=== PATIENT | female | born 1950 | race Caucasian/White ===

== ENCOUNTER 2022-11-13 06:32 | Observation (INO) ==
--- NOTE | 2022-10-22 12:32 | PAT Medication Instructions ---
Medication Instructions Date of Service October 22, 2022 Home Medications duloxetine 20 mg capsule,delayed release 50 mg PO QAM ibuprofen 200 mg tablet 200 mg PO HS lisinopril 10 mg tablet 10 mg PO QAM melatonin 10 mg tablet 10 mg PO HS PRN pantoprazole 40 mg tablet,delayed release 40 mg PO QAM simvastatin 10 mg tablet 10 mg PO HS ASK your surgeon for instructions ibuprofen 200 mg tablet 200 mg PO HS DO NOT take the morning of surgery lisinopril 10 mg tablet 10 mg PO QAM Take morning of surgery With a small sip of water, OTHERWISE NOTHING TO EAT OR DRINK AFTER MIDNIGHT: duloxetine 20 mg capsule,delayed release 50 mg PO QAM pantoprazole 40 mg tablet,delayed release 40 mg PO QAM Take evening before surgery melatonin 10 mg tablet 10 mg PO HS PRN(if needed) simvastatin 10 mg tablet 10 mg PO HS Other Notes If you have any questions please call us at [phone] or [phone] or [phone] or [phone]
--- NOTE | 2022-10-26 08:54 | History & Physical Report ---
Date of Service October 26, 2022 date of surgery: 11/13/22 Procedure: Right Total Knee Arthroplasty Surgeon: Aaron De Leon Assessment & Plan (1) Arthritis of right knee: Plan: Risk and benefits of the procedure were discussed in detail, she would like to proceed with right total knee arthroplasty. We will plan on overnight stay at the hospital with discharge home with home health physical therapy. Will place on aspirin 81 mg twice a day for 1 month postop DVT prophylaxis, she otherwise has no other questions or concerns The risks and benefits have been discussed including, but not limited to, risk of infection, nerve injury, stiffness, loss of motion, failure to improve, etc. Reasonable outcomes and options of treatment were discussed. An explanation of appropriate alternatives to the procedure that may be advantageous were discussed and their risks and benefits, as well as the risks and benefits of not proceeding with treatment. I offered to answer any additional inquiries concerning the treatment involved. All the patient's questions were answered. The patient is agreeable, understanding of the treatment plan and alternatives, and wishes to proceed with the treatment plan. History of Present Illness Chief Complaint: Right knee pain Primary Care Provider: NO PCP Elle is a 72-year-old female who presents for preop evaluation prior to her right total knee replacement scheduled for November 13. She has a longstanding history of right knee pain denies any previous surgeries. She has undergone previous corticosteroid injection as well as viscosupplementation without relief. She tried oral anti-inflammatories and Tylenol, rates her current pain as a 7 out of 10. At this point time is failed conservative measures and would like to proceed with a right total knee arthroplasty Allergies Allergy/AdvReac Type Severity Reaction Status Date / Time No Known Allergies Allergy Verified 10/22/22 11:40 Home Medications Medication Instructions Recorded Confirmed Type duloxetine 20 mg capsule,delayed 50 mg PO QAM 10/22/22 10/22/22 History release ibuprofen 200 mg tablet 200 mg PO HS 10/22/22 10/22/22 History lisinopril 10 mg tablet 10 mg PO QAM 10/22/22 10/22/22 History melatonin 10 mg tablet 10 mg PO HS PRN Sleep 10/22/22 10/22/22 History pantoprazole 40 mg tablet,delayed 40 mg PO QAM 10/22/22 10/22/22 History release simvastatin 10 mg tablet 10 mg PO HS 10/22/22 10/22/22 History Past Med/Surg History Medical History Depression Fibromyalgia GERD (gastroesophageal reflux disease) History of COVID-19 08/2022 (home test)- fatigue, aches; resolved HTN (hypertension) Hyperlipidemia Sleep apnea CPAP (compliant) Varicose veins of both lower extremities Surgical History Hx of bilateral cataract extraction Hx of section Hx of cholecystectomy Hx of colonoscopy Family History Other No family history of adverse response to anesthesia Social History Smoking Status: Former smoker Second Hand Exposure: No; Do You Dip or Chew Tobacco: No; Hx Alcohol Use: No Hx Substance Use: No Preferred Language: Brazilian Communication Ability: Effective Erosion Control Coordinator Required: No Beliefs That Will Affect Care: None Current Living Situation: Alone Feels Safe at Home: Yes Assistive Devices: CPAP and Glasses Review of Systems Review of Systems: All systems reviewed & are unremarkable except as noted in HPI & below Constitutional: no fever, no chills and no sweats Respiratory: no cough and no dyspnea Cardiovascular: no chest pain, no dyspnea and no orthopnea Gastrointestinal: no abdominal pain, no nausea and no vomiting Musculoskeletal: as per Subjective / HPI Physical Exam Physical Exam: HT: 5ft 1in WT: 114.2kg Constitutional: WD/WN, vitals as above no acute distress Respiratory: normal respiratory effort, lungs clear to auscultation no respiratory distress, no labored breathing and does not use accessory muscles Cardiovascular: RRR, no murmur, no edema Gastrointestinal (Abdomen): normal bowel sounds, soft, nontender, no hepatosplenomegaly Musculoskeletal: Knee: + knee abnormal to inspection (RIGHT KNEE: ), + effusion (+1 effusion), + limited ROM of knee (ROM 0/3/110), + knee ROM with crepitation, + joint line tenderness (medial joint line) and + Lamar's sign positive; no deformity, no skin erythema, no ecchymosis, no valgus laxity, no varus laxity, anterior drawer test negative, Ivonne's sign negative and pivot shift test negative Results & Data Results & Data Diagnostic Findings Right Knee X-ray: Right knee series showing advanced degenerative changes to the right knee, n arrowing of the medial compartment and patello-femoral joint with patellar spurring noted, findings showing joint space narrowing of the medial compartment and patello-femoral joint, osteophyte formation and subchondral sclerosis noted. overall varus alignment. no acute bony pathology noted.
--- NOTE | 2022-10-26 12:35 | Anesthesiology Consultation ---
Date of Service October 26, 2022 Assessment & Plan (1) Encounter for pre-operative examination: - COVID screening: Per assessment on 10/26: No known COVID-19 positive contacts or current COVID-19 related symptoms. Travel screen negative. Patient vaccinated. - Outpatient joint assessment: Pt currently scheduled for inpatient pathway. If surgeon requests review for outpatient joint pathway, patient is not recommended candidate for outpatient joint program from anesthesia standpoint. Chart Review Chart Review: Acceptable Risk for Surgery and Patient seen in Pre Admission Testing Teaching & Discussion Pre-Anesthesia Teaching/Discussion Notes: Instructed NPO after midnight before surgery,except medications with 15 cc of water. Medication instructions provided according to the PAT guidelines. History Surgery Operation Date: 11/13/22 08:25 Proposed Procedures p Right Total Knee Arthroplasty - Aaron De Leon DO Height/Weight Height: 5 ft 1 in Weight: 114.2 kg Allergies Allergy/AdvReac Type Severity Reaction Status Date / Time No Known Allergies Allergy Verified 10/22/22 11:40 Medications Home Medications Medication Instructions Recorded Confirmed Last Taken duloxetine 20 mg capsule,delayed 50 mg PO QAM 10/22/22 10/22/22 Unknown release ibuprofen 200 mg tablet 200 mg PO HS 10/22/22 10/22/22 Unknown lisinopril 10 mg tablet 10 mg PO QAM 10/22/22 10/22/22 Unknown melatonin 10 mg tablet 10 mg PO HS PRN Sleep 10/22/22 10/22/22 Unknown pantoprazole 40 mg tablet,delayed 40 mg PO QAM 10/22/22 10/22/22 Unknown release simvastatin 10 mg tablet 10 mg PO HS 10/22/22 10/22/22 Unknown Past Medical History Medical History Depression Fibromyalgia GERD (gastroesophageal reflux disease) History of COVID-19 08/2022 (home test)- fatigue, aches; resolved HTN (hypertension) Hyperlipidemia Sleep apnea CPAP (compliant) Varicose veins of both lower extremities Exercise / Class Metabolic Activity III < 4 Walking/Shop/Light housework Past Family History Family History Other No family history of adverse response to anesthesia Past Surgical History Surgical History Hx of bilateral cataract extraction Hx of section Hx of cholecystectomy Hx of colonoscopy Past Anesthesia History No Family Hx of Anesthesia Complications and Other (Urinary retention after neuraxial anesthesia for c/s + delivery) History of PONV No Hx of PONV and No Hx of Motion Sickness Social History Smoking Status: Former smoker Do You Dip or Chew Tobacco: No Smoking End Date: Quit 40 years ago Hx Alcohol Use: No Hx Substance Use: No substance use type: does not use Review of Systems Patient denies chest pain, shortness of breath, fever, chills, cough, wheezing, palpitations. Physical Exam Vital Signs VITALS BP 141/81 P 74 TEMP 98.2 SP02 96%RA RESP 16 PHYSICAL Full cervical extension range of motion. Full TMJ range of motion. TMD 3 finger breaths Mallampati Score 4 (small oral opening) Dentition: several missing teeth (sides/molars) Lungs: clear throughout to auscultation Cardiac: regular rate and rhythm, no murmurs noted Spine: normal Carotid arteries: negative bruit Extremities: non-pitting LE edema Thick neck Lab Results Anesthesia Preop Results Results Anesthesia Widget: WBC 6.88 K/ul (4.8-10.8) 10/26/22 Hgb 14.1 g/dl (12.0-16.0) 10/26/22 Hct 40.9 % (37.0-47.0) 10/26/22 Plt 279 K/uL (130-400) 10/26/22 Na 140 mmol/L (136-145) 10/26/22 K 3.8 mmol/L (3.5-5.1) 10/26/22 Cl 108 mmol/L (98-107) H 10/26/22 CO2 25 mmol/L (21-32) 10/26/22 BUN 19 mg/dl (6-23) 10/26/22 Creat 0.57 mg/dl (0.6-1.2) L 10/26/22 Glucose Level 131 mg/dl (70-99(Fasting)) H 10/26/22 PT 10.6 Seconds (9.0-12.0) 10/26/22 PTT 26.8 Seconds (21.0-31.0) 10/26/22 INR 1.0 (0.9-1.1) 10/26/22 HA1c 5.6 % (4.5-5.6) 10/26/22 Urine Color Yellow 10/26/22 Urine Appearance Cloudy (Clear) A 10/26/22 Urine pH 5.0 (4.5-7.5) 10/26/22 Urine Specific [place] 1.023 (1.000-1.030) 10/26/22 Urine Protein Negative (Negative) 10/26/22 Urine Glucose (UA) Negative (Negative) 10/26/22 Urine Ketones Negative (Negative) 10/26/22 Urine Blood Negative (Negative) 10/26/22 Urine Nitrite Negative (Negative) 10/26/22 Urine Bilirubin Negative (Negative) 10/26/22 Urine Urobilinogen Negative (Negative) 10/26/22 Urine Leukocyte Esterase 2+ (Negative) H 10/26/22 Urine WBC (Auto) 10-30 /hpf (0-5) H 10/26/22 Urine RBC (Auto) 0-4 /hpf (0-4) 10/26/22 Urine Hyaline Casts (Auto) 1-5 /lpf (0-5) 10/26/22 Urine Epithelial Cells (Auto) >30 /lpf (0-5) H 10/26/22 Urine Bacteria (Auto) Negative (Negative) 10/26/22 Blood Type B Positive 10/26/22 Antibody Screen NEGATIVE 10/26/22 Testing Electrocardiogram Date: 10/26/22 NSR at 74bpm. Low voltage QRS. *Poor data quality. Chest X-Ray Date: 10/26/22 FINDINGS: PA and lateral chest radiographs are obtained. No prior studies are available for comparison at the time of dictation. The cardiomediastinal silhouette is unremarkable noting atherosclerotic calcification of the thoracic aorta. There is bibasilar atelectasis. The lungs and pleural spaces are otherwise clear. There is no pneumothorax. The skeletal structures are osteopenic. The bony thorax appears intact. Degenerative change is noted in the spine. Cholecystectomy clips are noted in the upper quadrant. IMPRESSION: No active disease in the chest. COVID-19 Risk Screen Screening Information COVID-19 Screen Date: 10/26/22 Exposure 21 Days Family/Household +COVID Last 21 Days: No Exposure 10 Days Any COVID Exposure Last 10 Days: No Symptoms Last 10 Days Experienced COVID Sx Last 10 Days: No + COVID 0-90 Days COVID + in Last 0-90 Days: No
[~2022-11-13 06:32] MED LIST: ACETAMINOPHEN 500 MG TAB PO SCH; CeleBREX 200 MG CAP PO SCH; FAMOTIDINE 20 MG TAB PO SCH; GABAPENTIN 300 MG CAP PO SCH; LR 60ML/HR IV SCH; METOCLOPRAMIDE HCL 10 MG TABLET PO SCH; ROPIVACAINE 0.5% HCL/PF 150 MG, BUPIVACAINE 0.75% MPF 20 ML, EPINEPHrine 30MG/30ML (OR ... INSTIL SCH; TRANEXAMIC ACID 1,000 MG **IV Intra-op IV SCH; TRANEXAMIC ACID 1,000 MG **IV Pre-op IV SCH; ceFAZolin 2000MG 2,000 MG/15 ML SYR IV SCH; dexAMETHasone 4 MG TAB PO SCH
[2022-11-13] MEDS ORDERED: BUPIVACAINE 0.25% PF 30 ML VIAL ONE (06:35)
[2022-11-13] MEDS ORDERED: BUPIVACAINE 0.5 % 5 MG/1 ML PF 10ML VIAL ONE (06:35)
[2022-11-13] MEDS ORDERED: ePHEDrine sulfate 50 MG/ML AMP IV PRN (07:44)
[2022-11-13] MEDS ORDERED: ATROPINE SULFATE 0.1 MG/ML 10ML SYR IV PRN (07:44)
[2022-11-13] MEDS ORDERED: ONDANSETRON INJ 2 MG/ML 2 ML VIAL IV PRN ×2 (07:44→12:56)
[2022-11-13] MEDS ORDERED: fentaNYL citrate PF 100 MCG/2 ML VIAL IV PRN (07:44)
[2022-11-13] MEDS: LR 500ML BOLUS, THEN 15ML/HR IV SCH ×2 (08:04→08:09)
[2022-11-13] MEDS ORDERED: ONDANSETRON INJ 2 MG/ML 2 ML VIAL ONE (08:33)
[2022-11-13] MEDS ORDERED: MIDAZOLAM HCL 1 MG/ML 2ML VIAL ONE (08:33)
[2022-11-13] MEDS ORDERED: LIDOCAINE 2% 2 ML VIAL/AMP(20MG/ML) INFIL ONE (08:33)
[2022-11-13] MEDS ORDERED: KETAMINE 50 MG/5 ML SYRINGE ONE (08:33)
[2022-11-13] MEDS ORDERED: GLYCOPYRROLATE 0.2 MG/ML VIAL ONE (08:33)
[2022-11-13] MEDS ORDERED: PROPOFOL IV EMULSION 10 MG/ML 20 ML VIAL IV ONE ×2 (08:33→11:07)
--- NOTE | 2022-11-13 08:48 | History & Physical Bridge Note ---
Date of Service November 13, 2022 History & Physical Bridge Note I have examined the patient, reviewed the History & Physical and in the interval since the performance of the History & Physical I have noted the following changes of clinical significance: no changes noted
[2022-11-13] MEDS ORDERED: ORTHO JOINT ANESTHETIC ONE (09:55)
[2022-11-13] MEDS ORDERED: PHENYLEPHRINE HCL 10 MG/ML VIAL ONE (10:23)
--- NOTE | 2022-11-13 11:18 | Operative Report ---
Post Operative Report Pre & Post Diagnosis Operation Date: 11/13/22 09:10 Pre-Op Diagnosis: Right Knee OsteoarthritisMorbid obesity Post-Op Diagnosis: Right Knee OsteoarthritisMorbid obesity I identified the patient and participated in the time-out.: Yes Procedure Operation Date: 11/13/22 09:10 Actual Procedures p Right Total Knee Arthroplasty(Right)Utilizing [employer] 2 patient match total knee arthroplasty size femur 5 tibia 3 polythirteen constrained patella 29 oval - Aaron De Leon DO Surgeon Aaron De Leon DO Merchandising Team Lead Yvan VENTURA Estimated Blood Loss 10 Findings Consistent with Post-Op Diagnosis Patient presents with severe end-stage tricompartmental degenerative joint disease no response to conservative management patient has eburnated [id number] marginal osteophytes subchondral sclerosis with moderate to large effusion Specimens Bone and cartilage Drains Medium bore Hemovac Anesthesia Type MAC Spinal Regional Complications none Disposition Accompanied Patient To Recovery: No Disposition: Recovery Room Indications Patient presents with severe end-stage DJD right knee no response to conser vative management patient failed after corticosteroid injection viscosupplementation relative rest activity modification above intraoperative findings were noted Description of Procedure After proper prepping and draping of the Right lower extremity anterior midline incision was made over the region of the extensor extensor mechanism after meticulous hemostasis was obtained and maintained in subcutaneous tissues a medial parapatellar incision was made The patella was subluxed lateralward the medial lateral gutter were cleaned from any hypertrophic synovitis and scar tissue of the distal femoral block was placed and the distal femoral osteotomy cut was made subsequently the chamfers anterior and posterior osteotomy cuts were made utilizing the 4-in-1 block the tibia was subsequently subluxed anteriorward medial and ateral meniscal remnants were excised in their entirety remnants of the anterior and posterior cruciate ligaments were excised in their entirety excellent exposure of the proximal tibia was obtained the tibial osteotomy guide was placed on the proximal tibial osteotomy cut was made once again the knee was irrigated with copious amounts of sterile saline solution the patella was subsequently everted lateralward thickened scar tissue around the patella was removed the patella was subsequently cut utilizing a freehand estuardo hnique and was drilled prepared for final preparation and placement of patella socially flexion-extension gaps were checked and the equal and symmetric trials were placed to the appropriate femoral and tibial trials with poly-spacer being placed for equal flexion and extension gaps and full range of motion including extension to 0 and flexion to 140 the trial components after having been taken to recovery range of motion was subsequently removed meticulous hemostasis was obtained and maintained subsequently a knee block injection of joint cocktail including ropivacaine 0.5% 150 mg. Bupivacaine 0.5% epinephrine 1-200,030 mL's toradol 30 mg dexamethasone 4 mg ketamine 10 mg clonidine 100 micrograms normal saline solution 30 mg was infiltrated into the soft tissues of the posterior knee medial lateral gutters and periosteal synovium special attention was paid to protect neurovascular structures at all times subsequently trial components having been removed the knee was irrigated with sterile saline solution. debris was removed the proximal tibia was subsequently prepared and was made ready for the placement of the tibial component tibial component was also cemented and tamped into position the femoral component was subsequently placed and cemented in the position the patellar component was subsequently cemented in position because hemostasis once again obtained and maintained wound having been thoroughly irrigated with debridement and debridement lavage was performed as well as a medial parapatellar incision closed with #1 Vicryl in interrupted fashion subcutaneous was closed with #2 Vicryl skin was closed with skin clips. PA-C was necessary for prepping and drapping as well as wound closure of deep fascia Sub cutaneous tissue and skin and was necessary for the case. A sterile compressive dressing was placed patient was taken to recovery in stable condition of report dictated by Moises I attest to the content of the Intraoperative Record and any orders documented therein. Any exceptions are noted below.Due to the complex nature of the procedure, the entire surgery was performed with the operational assistance of Yvan Walton [facility]. The leasing assistant, under direct supervision, was involved in the actual performance of all aspects of the surgical procedure including hemostasis, tissue retraction and incision, instrument management, patient positioning, and wound closure.The patient is [113.7 kgs with a BMI of 47.4. The patient's habitus did contribute to significant technical difficulty requiring extra time. Additional help was necessary in order to position the patient safely. The use of specialized (longer, deeper) retractors and/or instruments were needed. Due to this, the procedure took 20 minutes longer than the standard total knee arthroplasty." I attest to the content of the Intraoperative Record and any orders documented therein. Any exceptions are noted below.
--- NOTE | 2022-11-13 12:07 | XRay Report ---
XR knee RT 1 or 2V routine CLINICAL HISTORY: Surgical Post Op TECHNIQUE: 2 views of the right knee were obtained. Comparison: None available at the time of this dictation. FINDINGS: Patient is status post total knee arthroplasty with expected postsurgical changes including soft tiss ue swelling and subcutaneous emphysema. No periarticular lucency or hardware fracture is seen. IMPRESSION: Expected postoperative appearance status post placement of total knee arthroplasty. ACT 112: Negative or not required by law. Electronically signed by: Lenny Lam M.D. 11/13/2022 12:06 PM
[2022-11-13] MEDS ORDERED: bisacodyL 10 MG SUPP PR PRN (12:56)
[2022-11-13] MEDS ORDERED: HYDROmorphone INJ 1 MG/ML SYRINGE IV PRN (12:56)
[2022-11-13] MEDS ORDERED: METOCLOPRAMIDE HCL INJ 5 MG/ML 2 ML VIAL IV PRN (12:56)
[2022-11-13] MEDS ORDERED: diphenhydrAMINE Capsule 25 MG CAP PO PRN (12:56)
[2022-11-13] MEDS ORDERED: NALOXONE HCL 0.4 MG/1 ML VIAL/CARP IV PRN (12:56)
[2022-11-13] MEDS ORDERED: MAGNESIUM HYDROXIDE SUSP 30 ML UDC PO PRN (12:56)
[2022-11-13] MEDS ORDERED: SODIUM CHLORIDE 0.9% 1000ML 1,000 ML IV SCH (12:56)
[2022-11-13] MEDS ORDERED: MELATONIN 3 MG TAB PO PRN (13:03)
[2022-11-13] MEDS: KETOROLAC TROMETHAMINE 15 MG/ML VIAL IV SCH ×2 (13:32→18:30)
[2022-11-13] MEDS: oxyCODONE HCL IR 5 MG TAB (IMMEDIATE RELEASE) PO PRN (13:55)
[2022-11-13] MEDS: ACETAMINOPHEN 500 MG TAB PO SCH ×2 (14:53→21:59)
--- NOTE | 2022-11-13 14:57 | Anesthesiology Progress Note ---
Date of Service November 13, 2022 Anesthesia Post Procedure Vital Signs Vital Signs: Temp Pulse Pulse Resp BP Pulse Ox O2 Del Method 11/13/22 14:51 36.4 C L 74 16 114/64 95 Nasal Cannula 11/13/22 13:53 36.4 C L 77 16 128/62 94 Nasal Cannula 11/13/22 13:17 36.4 C L 74 16 126/66 95 Nasal Cannula 11/13/22 12:45 36.7 C 79 16 132/68 92 Nasal Cannula 11/13/22 12:45 Nasal Cannula 11/13/22 12:30 78 14 137/67 93 Room Air 11/13/22 12:15 82 12 140/63 94 Room Air 11/13/22 12:00 36.6 C 82 19 125/65 94 Room Air 11/13/22 11:50 81 14 127/63 99 Oxymask 11/13/22 11:44 36.7 C 77 12 123/53 L 95 Oxymask 11/13/22 07:25 36.8 C 76 20 152/82 H 95 Room Air O2 Flow Rate 11/13/22 14:51 2 11/13/22 13:53 2 11/13/22 13:17 2 11/13/22 12:45 2 11/13/22 12:45 2 11/13/22 12:30 11/13/22 12:15 11/13/22 12:00 11/13/22 11:50 9 11/13/22 11:44 9 11/13/22 07:25 Transfer of Care Handoff Completed per policy Notes Mental Status: alert / awake / arousable and participated in evaluation Patient Amnestic to Procedure: Yes Nausea / Vomiting: adequately controlled Pain: adequately controlled Airway Patency, RR, SpO2: stable & adequate BP & HR: stable & adequate Hydration State: stable & adequate Neuraxial Anesthesia: was administered and sensory block is resolving Anesthetic Complications: no major complications apparent and Pt Satisfied with anesthetic care
[2022-11-13] MEDS: ceFAZolin 2000MG 2,000 MG/15 ML SYR IV SCH (18:29)
[2022-11-13] MEDS: ASPIRIN 81 MG ECTAB PO SCH (20:44)
[2022-11-13] MEDS: DOCUSATE SODIUM 100 MG CAP PO SCH (20:45)
[2022-11-13] MEDS ORDERED: SIMVASTATIN 10 MG TAB PO SCH (21:00)
[2022-11-13] MEDS ORDERED: SENNA 8.6 MG TAB PO SCH (21:00)
[2022-11-14] MEDS: KETOROLAC TROMETHAMINE 15 MG/ML VIAL IV SCH ×2 (01:10→07:10)
[2022-11-14] MEDS: ceFAZolin 2000MG 2,000 MG/15 ML SYR IV SCH (02:32)
[2022-11-14] MEDS: ACETAMINOPHEN 500 MG TAB PO SCH (06:21)
[2022-11-14 06:53] LABS: Hematocrit (blood only) 36.5 % (37.0-47.0); Hemoglobin 12.6 g/dl (12.0-16.0); Mean Corpuscular Hemoglobin 32.6 pg (25.0-34.0); Mean Corpuscular Hgb Conc 34.5 g/dL (32.0-36.0); Mean Corpuscular Volume 94.3 fL (80.0-100.0); Mean Platelet Volume 10.3 fL (9.4-12.4); Platelet Count 250 K/uL (130-400); RDW Standard Deviation 41.1 fL (36.4-46.3); Red Blood Count 3.87 M/uL (4.20-5.40)
[2022-11-14] MEDS: DOCUSATE SODIUM 100 MG CAP PO SCH (07:11)
[2022-11-14] MEDS: ASPIRIN 81 MG ECTAB PO SCH (07:11)
[2022-11-14 07:37] LABS: Anion Gap 6 (3-11); BUN Creatinine Ratio 31.8 (10-20); Blood Urea Nitrogen 21 mg/dl (6-23); Calcium 8.6 mg/dl (8.6-10.3); Carbon Dioxide 25 mmol/L (21-32); Chloride 107 mmol/L (98-107); Creatinine Clr Calc Pharmacy 88.9 ml/min; Est GFR (African American) 101.6 ml/min; Est GFR (Non-African American) 87.6 ml/min; Glucose 118 mg/dl (70-99(Fasting)); Sodium 138 mmol/L (136-145)
--- NOTE | 2022-11-14 08:35 | Orthopedic Progress Note ---
Date of Service November 14, 2022 Assessment & Plan (1) Arthritis of right knee: Plan: Postop day 1 PT/OT protocols. Weightbearing as tolerated. DVT prophylaxis-aspirin p.o. twice daily, Camila, LENIN monsalve. Pain management as written. DC planning-patient to discuss with case management about possibilities of home health versus outpatient PT. Admission and Anticipated Discharge Date Admission Date: November 13, 2022 Subjective Postop day 1 Patient lying in bed. Sleeping but easily arousable. States she did not sleep very well last night but otherwise feels well. Pain is controlled. She is hoping to go home today. Physical Exam Physical Exam: Dressings are clean, dry, and intact. Calves are soft nontender. Neurovascular intact. Toes are mobile. She has good dorsiflexion and plantarflexion of the right foot. Hemovac drainage was approximately 100 cc from the previous shift Results & Data Vital Signs (Past 12 Hours) Vital Signs Temp Pulse Resp BP Pulse Ox O2 Del Method 11/14/22 07:15 36.7 C 61 18 117/63 94 Room Air 11/14/22 02:34 36.8 C 71 18 112/67 92 Room Air 11/13/22 23:03 36.7 C 81 18 139/66 96 Room Air Laboratory Results Laboratory Results WBC 14.10 K/ul (4.8-10.8) H 11/14/22 06:10 RBC 3.87 M/uL (4.20-5.40) L 11/14/22 06:10 Hgb 12.6 g/dl (12.0-16.0) 11/14/22 06:10 Hct 36.5 % (37.0-47.0) L 11/14/22 06:10 MCV 94.3 fL (80.0-100.0) 11/14/22 06:10 MCH 32.6 pg (25.0-34.0) 11/14/22 06:10 MCHC 34.5 g/dL (32.0-36.0) 11/14/22 06:10 RDW Std Deviation 41.1 fL (36.4-46.3) 11/14/22 06:10 RDW Coeff of Edwige 12.0 % (11.5-14.5) 11/14/22 06:10 Plt Count 250 K/uL (130-400) 11/14/22 06:10 MPV 10.3 fL (9.4-12.4) 11/14/22 06:10 Sodium 138 mmol/L (136-145) 11/14/22 06:10 Potassium TNP 11/14/22 06:10 Chloride 107 mmol/L (98-107) 11/14/22 06:10 Carbon Dioxide 25 mmol/L (21-32) 11/14/22 06:10 Anion Gap 6 (3-11) 11/14/22 06:10 BUN 21 mg/dl (6-23) 11/14/22 06:10 Creatinine 0.66 mg/dl (0.6-1.2) 11/14/22 06:10 Est Cr Clr Drug Dosing 88.9 ml/min 11/14/22 06:10 Est GFR ( Amer) 101.6 ml/min 11/14/22 06:10 Est GFR (Non-Af Amer) 87.6 ml/min 11/14/22 06:10 BUN/Creatinine Ratio 31.8 (10-20) H 11/14/22 06:10 Glucose 118 mg/dl (70-99(Fasting)) H 11/14/22 06:10 Calcium 8.6 mg/dl (8.6-10.3) 11/14/22 06:10 Impressions Knee X-Ray 11/13/22 11:50 XR knee RT 1 or 2V routine CLINICAL HISTORY: Surgical Post Op TECHNIQUE: 2 views of the right knee were obtained. Comparison: None available at the time of this dictation. FINDINGS: Patient is status post total knee arthroplasty with expected postsurgical changes including soft tissue swelling and subcutaneous emphysema. No periarticular lucency or hardware fracture is seen. IMPRESSION: Expected postoperative appearance status post placement of total knee arthroplasty. ACT 112: Negative or not required by law. Electronically signed by: Lenny Lam M.D. 11/13/2022 12:06 PM
[2022-11-14] MEDS ORDERED: lisinopril 10 MG TAB PO SCH (09:00)
[2022-11-14] MEDS ORDERED: CeleBREX 200 MG CAP PO SCH ×2 (09:00→21:00)
[2022-11-14] MEDS ORDERED: DULoxetine HCL 30 MG CAP PO SCH (09:00)
[2022-11-14] MEDS ORDERED: DULoxetine HCL 20 MG CAP PO SCH ×2 (09:00)
[2022-11-14] MEDS ORDERED: MULTIVITAMIN TAB PO SCH (09:00)
[2022-11-14] MEDS: oxyCODONE HCL IR 5 MG TAB (IMMEDIATE RELEASE) PO PRN (11:35)
--- NOTE | 2022-11-14 12:59 | Discharge Summary ---
Date of Service date of discharge: November 14, 2022 date of admission: 11-13-22 Admission HPI Per Admitting Provider Elle is a 72-year-old female who presents for preop evaluation prior to her right total knee replacement scheduled for November 13. She has a longstanding history of right knee pain denies any previous surgeries. She has undergone previous corticosteroid injection as well as viscosupplementation without relief. She tried oral anti-inflammatories and Tylenol, rates her current pain as a 7 out of 10. At this point time is failed conservative measures and would like to proceed with a right total knee arthroplasty Principal Diagnosis right knee arthritis Discharge Exam Musculoskeletal Right Knee: NVDI, calf SNT, negative roberto sign. DP palpable, able to wiggle toes/ankle movement without difficulty. RADHA dressing clean dry and intact. expected post-operative bruising noted. Discharge Data Allergies Allergy/AdvReac Type Severity Reaction Status Date / Time No Known Allergies Allergy Verified 11/13/22 07:17 Procedures Performed Operation Date: 11/13/22 09:10 Actual Procedures p Right Total Knee Arthroplasty(Right) - Aaron De Leon DO Ordered Studies 11/13/22 05:00 US - OR guided needle placemen Stat Hospital Course (1) Arthritis of right knee: Postop day 1 PT/OT protocols. Weightbearing as tolerated. DVT prophylaxis-aspirin p.o. twice daily, SCDsLENIN. Pain management as written. DC planning-patient to discuss with case management about possibilities of home health versus outpatient PT. Total Time Total Time Spent Total Time Spent (In Minutes): 20 Discharge Plan Discharge Items Patient Disposition: Home - Home Health Services Reason For Visit: Right Knee Osteoarthritis Discharge Diagnosis: right total knee replacement Activity: Per Instructions section Weightbearing: Right weightbearing Weightbearing Comment: WBAT with walker Non-emergency contact: Surgeon Call non-emergency contact if: you have any medication questions, your temperature is above 101.5, your wound has increased redness, your wound has increased drainage and your wound pain has increased Follow-up/Referrals: Aaron De Leon DO [Surgeon] - (Follow-up with Dr. De Leon or his PA in approximately 2 weeks from the day of your surgery for your first postoperative visit) Tova Beaver M.D. [Primary Care Provider] - Diet: Regular Addtl Attending Provider Instructions: ACTIVITY RECOMMENDATIONS: SELF CARE INSTRUCTIONS AFTER TOTAL KNEE REPLACEMENT A. You may need to continue a physical therapy program after discharge from the hospital. There are several options available to you. Your doctor will assist you in selecting the best one for you. 1. An out-patient facility 2 to 3 times a week for therapy or home therapy. 2. Continue working on all exercises taught to you in the hospital. Your goals should be to increase bending of your knee to 90 degrees and beyond and to fully straighten your knee. B. You may progress at your own pace from walking with a walker or crutches to a cane; then to no assistive devices. C. Make walking a part of your daily routine. Be up as much as comfortable with rest periods throughout the day. Rest with leg elevation is very important. Use the ice wrap frequently for the first 3-4 weeks. D. There are no restrictions on activities. 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 E. Wear the long elastic stockings (LENIN hose) 20 hours a day for 2 weeks after surgery. They can be removed several times a day for laundering and for a bath. F. You may shower, no tub baths until cleared by your doctor. SPECIAL CARE INSTRUCTIONS: VERY IMPORTANT TO READ AND REVIEW A. There are a few signs you need to watch for after you are home. Call [facility] if you notice any of the followin. Increased severe knee pain. Some pain is expected especially when you exercise. 2. Increased swelling in your leg or knee; pain or swelling of the calf muscle in either lower leg. 3. Any fluid drainage from the incision. 4. Shortness of breath or chest pain. B. Please call [facility] at if you have any concerns or questions about your operation or recovery. The doctor or his nurse will return your call promptly. C. You must take antibiotics before dental work, bladder, bowel or other surgery. Your doctor will provide you with a permanent care to carry describing this precaution. IMPORTANT: * REMEMBER TO TAKE ASPIRIN, 81 MG, TWICE DAILY FOR 4 WEEKS UNLESS OTHERWISE DIRECTED. THIS IS YOUR BLOOD THINNER. * HIGH RISK PATIENTS MAY BE PRESCRIBED A STRONGER BLOOD THINNER. THIS WILL BE PROVIDED AT DISCHARGE. * CALL IF INCREASED PAIN, REDNESS, DRAINAGE OR FEVER GREATER THAT 101. * WEAR LENIN HOSE 20 HOURS PER DAY FOR 2 WEEKS. RADHA Dressing- This is a large suction dressing covering your incision. This will help pull any excess drainage from the wound and allow your incision to heal properly. You may shower with this if you can keep the unit outside of the shower. If any bleeding or leakage is noted please call your doctor's office. This will remain on your incision for 7 days and then should be removed. This can be done yourself or by the home nursing staff if applicable. The entire unit is disposable once removed. Once removed, keep incision clean and dry. If redness or drainage is noted, please call your surgeon. FOLLOW UP VISIT: If appointment is not already scheduled: Please call [facility] to make a follow-up appointment for 2 weeks after your surgery at . Stand-Alone Forms: My [facility] [place] Medications and DC Order Prescriptions: New celecoxib [Celebrex] 200 mg Capsule 200 mg PO BID 14 Days Qty: 28 0RF aspirin 81 mg Tablet,Delayed Release (Dr/Ec) 81 mg PO BID 30 Days Qty: 60 0RF acetaminophen [Tylenol Extra Strength] 500 mg Tablet 1,000 mg PO Q8 14 Days Qty: 84 0RF cefadroxil 500 mg capsule 500 mg PO BID 14 Days Qty: 28 1RF polyethylene glycol 3350 [Miralax] 17 gram powder in packet 17 g PO DAILY PRN (Reason: constipation) Qty: 5 0RF oxycodone 5 mg tablet 5 mg PO Q4H MDD 6 PRN (Reason: pain) Qty: 30 0RF Continued simvastatin 10 mg Tablet 10 mg PO HS pantoprazole 40 mg Tablet,Delayed Release (Dr/Ec) 40 mg PO QAM lisinopril 10 mg Tablet 10 mg PO QAM duloxetine [Cymbalta] 20 mg Capsule,Delayed Release(Dr/Ec) 50 mg PO QAM melatonin 10 mg Tablet 10 mg PO HS PRN (Reason: Sleep) Discontinued ibuprofen 200 mg Tablet 200 mg PO HS Admission Data Admit Date/Time: 11/13/22 11:50 Attending Provider: Aaron De Leon Admit Provider: Aaron De Leon Primary Care Provider: Tova Beaver Other Interventions: Discharge Summary Assessment (RN) Last Done: 11/14/22 10:19
== END 2022-11-14 12:25 | disposition home health service (06) ==
LOC: ASU 06:32 → 3E 06:32